=== PATIENT | female | born 1980 ===

== ENCOUNTER → 2018-08-30 | Outpatient (CLI) | payer OTHER ==
[2018-08-30 11:28] VITALS: BP 148/108; PULSE 65; RESP 16; TEMP 98.4; BMI 36.6
--- NOTE | 2018-08-30 11:37 | P.GSHP ---
History of Present Illness H&P Date: 08/30/18 Chief Complaint: abnormal mammogram The patient is a 37-year-old white female who is status post screening mammography of the breast in June 2018. She was noted in the middle third of the right breast directly deep and below the nipple at the 6 o'clock position to have an area of irregular focal asymmetry with an indistinct margin. This measured 18 mm in size. Nothing was seen of concern in the left breast. She subsequently underwent an ultrasound of the right breast which revealed an irregular hypoechoic lesion measuring approximately 1 cm at the 6 o' clock position considered suspicious by ultrasound. This was felt to correspond with the abnormality seen on mammogram. Additionally at 11:00 there was an oval well-defined hypoechoic lesion which was thought to be a cluster of cyst and benign. The patient herself does not feel anything of concern in her breast. She has no nipple discharge or skin changes of concern. She has had no history of recent trauma to her breast nor any history of recent infection in the breast. She is not complaining of any pain in her breasts. No cyclical changes in her breasts related to her periods. Family history: 1. maternal grandmother: breast post menopausal Hormonal History: menarche: 12 : 4, 3 children, 1 misc[place]age first at 20, breast fed: yes periods regular BCP: 20 years using them now, (oral pill) hormones: none Past surgical history: 1. Cholecystectomy 2. Appendectomy Past medical history: None Social history: Smoke: Negative Alcohol: Occasional Drugs: None - Constitutional Constitutional: Denies chills, Denies fever - EENT Eyes: denies blurred vision, denies pain Ears: deny: decreased hearing, tinnitus Ears, nose, mouth and throat: Denies headache, Denies sore throat - Breasts Breasts: bilateral: as per HPI - Cardiovascular Cardiovascular: Denies chest pain, Denies shortness of breath - Respiratory Respiratory: Denies cough, Denies 7 - Gastrointestinal Gastrointestinal: Denies abdominal pain, Denies diarrhea, Denies nausea, Denies vomiting - Genitourinary (Female) Genitourinary: Denies dysuria, Denies hematuria - Menstruation Menstruation: Reports period normal - Musculoskeletal Musculoskeletal: Denies myalgias - Integumentary Integumentary: Denies pruritus, Denies rash - Neurological Neurological: Denies numbness, Denies weakness - Psychiatric Psychiatric: Reports anxiety, Reports depression - Endocrine Endocrine: Denies fatigue, Denies weight change - Hematologic/Lymphatic Comment: none - Allergic/Immunologic Allergic/Immunologic: Reports seasonal allergies Surgical - Exam BP: 148/108 R: 16 HR: 65 pulse ox: 98% T: 98.4 BMI 36.6 - General obese - Eyes normal ocular movement - ENT no hearing loss, no congestion - Neck no masses, trachea midline - Respiratory normal respiratory effort, clear to auscultation - Cardiovascular Rhythm: regular Heart Sounds: normal: S1, S2 - Abdomen Abdomen: soft - Integumentary Breast examination: Right breast: Multi-positional exam no dominant masses or nodules of concern Right axilla: No adenopathy of concern Left breast: Multiple positional exam or dominant masses or nodules of concern Left axilla: No adenopathy of concern tattoo noted across back - Neurologic no disoriented, no combative - Musculoskeletal normal gait, normal posture - Psychiatric oriented to time, oriented to person, oriented to place, speech is normal, memory intact breast exam dictated under integument Results Mammogram and ultrasound reports reviewed Assessment and Plan Assessment: Impression: 1. Ultrasound abnormality right breast 2. Depression/anxiety Plan: 1. Ultrasound-guided core biopsy right breast abnormality 2. Follow-up 1 week after ultrasound core biopsy Risks and benefits discussed with the patient this will be scheduled in the near future. Cc: , ([place])
--- NOTE | 2018-08-30 11:43 | P.PN ---
Progress Note - Text Progress Note Date: 08/30/18 The mammogram and ultrasound were reviewed with Dr. Veras. The lesion on mammogram was felt to be quite suspicious, it looks less suspicious on ultrasound. The consensus is that if this is non-concordant the lesion is quite suspicious on mammogram and the patient should have further workup depending on ultrasound core biopsy results. We would start with a mammogram after ultrasound biopsy to determine that the clip was in the correct location and if there was any question then stereo biopsy should be done of the lesion seen radiographically on mammogram. CC: Dr. Alexander
== END | disposition home or self-care (01) ==
LOC: WWCWWP 10:46
PROVIDERS: ATTEND Surgery
DX: Z53.9 Procedure and treatment not carried out, unspecified reason (principal)

== ENCOUNTER → 2018-09-17 | Day surgery (SDC) | payer OTHER ==
[2018-09-17 13:25] VITALS: BMI 36.3
--- NOTE | 2018-09-17 15:00 | USB ---
EXAMINATION TYPE: US biopsy breast VAD RT, MG diagnostic mammo RT wo CAD DATE OF EXAM: 09/17/2018 CLINICAL HISTORY: R92.8 ABNORMAL MAMMOGRAM. TECHNIQUE: Ultrasound guided core biopsy of right breast. COMPARISON: Outside MR grams dated 07/25/2018, 07/10/2018, and 03/07/2017 FINDINGS: The procedure of ultrasound guided core biopsy was explained to the patient. Benefits, alternatives, and risks were discussed. An informed consent was then obtained. A procedural timeout was performed. Preprocedural ultrasound demonstrates a right axillary lymph node with cortical thickness upper limits of normal. This lymph node is overall nonenlarged but is indeterminant. The patient was placed in supine positioning for imaging and for the procedure. The overlying skin was prepped and draped in usual sterile fashion. Lidocaine buffered with bicarbonate was used as anesthetic into the skin and subcutaneous tissue up to a 1.7 x 0.8 x 0.7 cm hypoechoic, irregular marginated mass at the 6:00 position within the right breast. Under ultrasound guidance, a 12-gauge vacuum assisted biopsy gun device was used to obtain 5 core samples. Following this, a ribbon-shaped biopsy marker was left in mass. The patient tolerated the procedure well without any immediate complication. The patient was kept in the radiology department for short stay after the procedure and then discharged home in stable condition. IMPRESSION: Successful, uncomplicated ultrasound guided core biopsy of a 1.7 cm highly suspicious mass at the 6:00 position within the right breast, full pathology results to follow. On review of the postprocedure mammogram a second upper-outer quadrant 6 mm and middle depth is seen for which targeted ultrasound is recommended after biopsy results. 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 See Surgical Pathology Cancer Case Summary. Recommendation Surgical consult of the right breast. PHILLY
[2018-09-17 15:38] VITALS: BP 130/87; PULSE 88; RESP 20; TEMP 98
== END ==
LOC: RADUSWWP 12:57
PROVIDERS: ATTEND Surgery
DX: D05.11 Intraductal carcinoma in situ of right breast (principal); Z88.1 Allergy status to other antibiotic agents
CPT/HCPCS: 88305; 77065; 19083; A4648; J2001; 88341; 88342